=== PATIENT | male | born 1995 | race Two or more races ===

== ENCOUNTER 2019-07-18 16:56 | Emergency (ER) | payer OTHER ==
[2019-07-18] MEDS ORDERED: Ibuprofen TAB* 600 MG PO ONE (17:24)
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
[2019-07-18 18:22] LABS: ABS Lymphocytes 2.3 10^3/ul (1.0-4.8); ABS Monocytes 0.9 10^3/ul (0-0.8); ABS Neutrophils 6.9 10^3/ul (1.5-7.7); Eosinophil % 0.4 %; Hematocrit 42 % (42-52); Lymphocyte % 22.9 %; Mean Corpuscular HGB Conc 35 g/dL (31-36); Mean Corpuscular Hemoglobin 32 pg (27-31); Mean Corpuscular Volume 91 fL (80-94); Mean Platelet Volume 9.4 fL (7.4-10.4); Platelet Count 206 10^3/uL (150-450); Red Blood Count 4.68 10^6 /uL (4.18-5.48); Red Cell Distribution Width 13 % (10-15); White Blood Count 10.2 10^3/uL (3.5-10.8)
[2019-07-18 18:35] LABS: Albumin 4.4 g/dL (3.2-5.2); Calcium 9.4 mg/dL (8.6-10.3); Potassium 3.6 mmol/L (3.5-5.0); Total Bilirubin 0.8 mg/dL (0.2-1.0)
[2019-07-18 18:41] LABS: Albumin/Globulin Ratio 1.8 (1-3); EGFR African American 128.9 (>60); EGFR Non-African American 106.5 (>60); Globulin 2.5 g/dL (2-4); Total Protein 6.9 g/dL (6.4-8.9)
[2019-07-18] MEDS ORDERED: Raltegravir* 400 MG TAB PO ONE (18:54)
[2019-07-18] MEDS ORDERED: Tenofovir/Emtricitab 200/300 * TAB PO ONE (18:54)
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
[2019-07-18 19:08] LABS: Hepatitis B Surface Antigen Nonreactive (Nonreactive)
[2019-07-18 19:18] LABS: HIV 4th Generation Nonreactive (Nonreactive)
[2019-07-18] MEDS ORDERED: Lidocaine 2% JELLY* 10 ML JELLY TOPICAL ONE (19:20)
[2019-07-18 19:25] LABS: Hepatitis C Antibody Negative (Negative)
[2019-07-18] MEDS ORDERED: Azithromycin TAB* 250 MG PO ONE (19:38)
[2019-07-18] MEDS ORDERED: cefTRIAXone VIAL(*) 250 MG VIAL IM ONE (19:38)
[2019-07-18] MEDS ORDERED: Lidocaine 1% MPF ** 5 ML VIAL IM ONE (19:38)
[2019-07-18] MEDS ORDERED: Ondansetron TAB* 4 MG PO ONE (19:38)
[2019-07-18 21:19] VITALS: BP 125/67
[2019-07-21 12:01] LABS: RPR Nonreactive (Nonreactive)
== END 2019-07-18 21:16 | disposition home or self-care (01) ==
LOC: ED 16:56
DX: T74.21XA Adult sexual abuse, confirmed, initial encounter (principal); Y07.9 Unspecified perpetrator of maltreatment and neglect; Y92.143 Cell of prison as the place of occurrence of the external cause; F17.200 Nicotine dependence, unspecified, uncomplicated
CPT/HCPCS: 36415; 80053; 83605; 85025; 86592; 86780; 86803; 87340; 87389; 96372; 99284; A9270-GY; J0696